=== PATIENT | male | born 1950 | race Caucasian/White ===

== ENCOUNTER 2023-07-05 14:42 | Emergency (ER) | payer BC, MEDICARE, OTHER ==
[~2023-07-05] VITALS: Ht 175 cm; Wt 92.0 kg
[~2023-07-05 14:42] MED LIST: AMOX250S5 PO; BNZ10T PO; HYDR118S PO; ONDAN4ODT PO
[2023-07-05 14:48] VITALS: BP 181/105
[2023-07-05] MEDS ORDERED: fentaNYL INJECTION 100 MCG/2 ML VIAL IVP STA (14:48)
--- NOTE | 2023-07-05 14:55 | ED Upper Extremity ---
General Chief Complaint: Upper Extremity Stated Complaint: RT SHOULDER/ARM INJ Source: patient History of Present Illness Date Seen by Provider: Jul 05, 2023 Time Seen by Provider: 14:44 Initial Comments 72-year-old male presenting with complaints of pain to his right shoulder and upper arm. He states he was hit by a cattle gate when a calf had run into it. He has pain to the shoulder and feels tingling in his pinky and ring finger. He has increased pain whenever he tries to move his right shoulder or arm. He denies hitting his head or losing consciousness. He denies other injuries. He reports he has no allergies to medications. He last ate around 7 AM. He is rating his pain at an 8 or 9 out of 10. Onset: just prior to arrival Severity: severe Pain/Injury Location: right shoulder Method of Injury: direct blow Modifying Factors: Worse With Movement Allergies and Home Medications Allergies Coded Allergies: No Known Drug Allergies (Unverified , 01/13/13) Patient Home Medication List Home Medication List Reviewed: Yes Amoxicillin (Amoxicillin) 250 Mg/5 Ml Susp.recon, 2 TSP PO QID, (Reported) Entered as Reported by: JARED RUIZ on 01/17/131807 Benazepril Hcl (Lotensin 10 Mg) 10 Mg Tablet, 1 EACH PO DAILY, (Reported) Entered as Reported by: KELL ROSENBAUM on 01/13/13 1319 Hydrocodone Bit/Acetaminophen (Hydrocodone-Apap 7.5-500 Mg/15) 120 Ml Solution, 10-15 ML PO Q4HR PRN, (Reported) Entered as Reported by: JARED RUIZ on 01/17/131807 Ondansetron Hcl (Zofran Oral Dissolve) 4 Mg Tab, 4 MG PO Q4-6HRS PRN, (Reported) Entered as Reported by: JARED RUIZ on 01/17/131807 Review of Systems Constitutional: No chills, No fever EENTM: no symptoms reported Respiratory: no symptoms reported Cardiovascular: no symptoms reported Gastrointestinal: no symptoms reported Genitourinary: no symptoms reported Musculoskeletal: see HPI Skin: no symptoms reported Psychiatric/Neurological: See HPI Past Ynrjgdp-Eymfhn-Oncjpw Hx Patient Social History Tobacco Use?: No Use of E-Cig and/or Vaping dev: No Substance use?: No Alcohol Use?: No Past Medical History Surgery/Hospitalization HX: Hypertension Reproductive Disorders: No Physical Exam Vital Signs Vital Signs - First Documented 07/05/23 14:48 Temp 36.7 Pulse 65 Resp 18 B/P (MAP) 181/105 (130) Pulse Ox 93 O2 Delivery Room Air Capillary Refill : Height, Weight, BMI Height: '" Weight: lbs. oz. kg; BMI Method: General Appearance: WD/WN, mild distress HEENT: PERRL/EOMI Cardiovascular: normal peripheral pulses, regular rate, rhythm Respiratory: chest non-tender, lungs clear, normal breath sounds Shoulder: deformity, limited ROM, pain Neurologic/Tendon: other (He is able to extend his thumb on the right hand and make an okay sign as well as bring his thumb to his pinky finger.) Neurologic/Psychiatric: alert, oriented x 3 Skin: normal color, warm/dry Procedures/Interventions Splinting and Joint Reduction : Location: Right anterior shoulder dislocation Pre-Proc Neuro Vasc Exam: normal Post-Proc Neuro Vasc Exam: normal Progress After obtaining consent from the patient and his patient was placed in upright position on the bed. Using the Nicola procedure with external rotation of the right arm and holding it externally rotated for at least 1 minute to allow the muscles to fatigue and stop spasming then abducted and rotated the elbow medially and then brought his right hand to left shoulder. he had closed reduction of the right shoulder dislocation without difficulty. He immediately had improved pain and the tingling in his right pinky and ring finger resolved. He remained neurovascularly intact pre and post closed reduction. Post reduction xray obtained to confirm reduction and verify no fracture. placed in sling to help stabilize shoulder. Advised to limit use of right arm until he can see orthopedics. wear sling at all times other than to change clothes and limit movement of right shoulder when he does change clothes or bathe. Advised to call orthopedics to arrange follow-up within the next week or so. Be seen sooner if having recurrent dislocation or more problems. Overall patient tolerated closed reduction procedure well without any immediate complication and had immediate improvement in terms of pain and sensation Joint Reduction Site: shoulder (R) Reduction Attempts: 1 Pre-Procedure NV Exam: Yes post joint reduction film: joint reduced Progress/Results/Core Measures Results/Orders My Orders Orders - TRINIDAD FOWLER MD Ed Iv/Invasive Line Start (07/05/23 14:48) Shoulder 3 View Right (07/05/23 14:48) Fentanyl Injection (Fentanyl Injection (07/05/23 14:48) Fentanyl Injection (Fentanyl Injection (07/05/23 15:20) Midazolam Injection (Midazolam Injection (07/05/23 15:20) Shoulder 1 View Right (07/05/23 15:29) Vital Signs/I&O 07/05/23 14:48 Temp 36.7 Pulse 65 Resp 18 B/P (MAP) 181/105 (130) Pulse Ox 93 O2 Delivery Room Air Progress Progress Note #1: Progress Note Differential diagnosis includes humerus fracture, shoulder dislocation, clavicle fracture, AC joint separation. Establish peripheral IV access and administer fentanyl 50 mcg IV x1 to help with pain. X-rays of the right shoulder to look for acute bony abnormality. Ice and elevation to help with pain Progress Note #2: Progress Note Patient had improved pain after the dose of fentanyl. He was consented for closed reduction of the dislocated shoulder. He tolerated the Nicola procedure with 1 attempt to reduce shoulder without difficulty. Placed in a sling and confirmed with postreduction x-ray. Counseled on follow-up and return precautions. Advised he could use acetaminophen and/or ibuprofen if needed for pain. Try to use ice to help with pain and inflammation. Try to keep the shoulder elevated is much as possible for the next few days. Given phone number for Dr. Berger as the on-call orthopedic doctor as well as he had previously been seen by Joey Key nurse practitioner so phone number for him was also provided. Diagnostic Imaging Diagonstic Imaging: Xray Plain Films/CT/US/NM/MRI: other (Right shoulder) Comments [facility], [place] NAME: [facility] REC#: [id number] PT STATUS: REG ER : 1950 PHYSICIAN: TRINIDAD FOWLER MD ADMIT DATE: 07/05/23/ER FS Signed Date of Exam:07/05/23 SHOULDER 3 VIEW RIGHT EXAMINATION: Right shoulder radiographs, 3 views. COMPARISON: None. HISTORY: 72-year-old male, right shoulder pain. FINDINGS: The humeral head is inferiorly and medially dislocated relative to the glenoid. There is no radiographically visible fracture. There are mild acromioclavicular degenerative changes without large undersurface osteophyte. IMPRESSION: 1. The humeral head is inferiorly and medially dislocated relative to the glenoid. 2. No radiographically apparent fracture. Dictated by: Dictated on workstation # [id number] Dict: 07/05/23 1508 Trans: 07/05/23 1518 [id number] Interpreted by: KARL MUSA MD Electronically signed by: KARL MUSA MD 07/05/23 1518 Reviewed: Reviewed by Me Diagonstic Imaging: Xray Plain Films/CT/US/NM/MRI: other (Postreduction right shoulder) Comments [facility] [place] NAME: [facility] REC#: [id number] PT STATUS: DEP ER : 1950 PHYSICIAN: TRINIDAD FOWLER MD ADMIT DATE: 07/05/23/ER FS Signed Date of Exam:07/05/23 SHOULDER 1 VIEW RIGHT SHOULDER 1 VIEW RIGHT INDICATION: Postreduction imaging COMPARISON: Earlier same day at 3:04 PM FINDINGS AND IMPRESSION: 1. The glenohumeral dislocation has been reduced. 2. No appreciable fracture. Specifically, no osseous Bankart, Hill-Sachs or glenoid fractures detected. Dictated by: Dictated on workstation # [id number] Dict: 07/05/23 1540 Trans: 07/05/23 1702 [facility] [id number] Interpreted by: KVNG JOSHI MD Electronically signed by: KVNG JOSHI MD 07/05/231701 Reviewed: Reviewed by Me Departure Impression Primary Impression: Dislocation of shoulder, right, closed Qualified Codes: S43.004A - Unspecified dislocation of right shoulder joint, initial encounter Additional Impression: Acute pain of right shoulder due to trauma Disposition: 01 HOME, SELF-CARE Condition: Improved Departure-Patient Inst. Decision time for Depature: 15:45 Referrals: KATE SUMNER MD (PCP) Primary Care Physician YANA KEY JUSTIN S MD Patient Instructions: Shoulder Pain ED, Shoulder Dislocation (DC) Add. Discharge Instructions: Try to wear the sling at all times until you are seen by orthopedics. When you are not using the sling and resting your shoulder there is a chance that it could dislocate again especially in this first few days. Apply ice and try to keep the shoulder elevated to help with pain and swelling. You may apply ice for 15 to 20 minutes every few hours as needed while awake. You may also take acetaminophen and/or ibuprofen if needed for pain. Call today to arrange follow-up with orthopedics within the next week. If you have recurrent dislocation or have increasing pain or develop numbness in your hands and fingers then you would need to be seen again to evaluate for possible recurrent dislocation or you may need an MRI to look for injury to the rotator cuff or nerves in your shoulder. All discharge instructions reviewed with patient and/or family. Voiced understanding. TRINIDAD FOWLER MD Jul 05, 2023 14:55
--- NOTE | 2023-07-05 15:17 | Diagnostic Imaging Report ---
EXAMINATION: Right shoulder radiographs, 3 views. COMPARISON: None. HISTORY: 72-year-old male, right shoulder pain. FINDINGS: The humeral head is inferiorly and medially dislocated relative to the glenoid. There is no radiographically visible fracture. There are mild acromioclavicular degenerative changes without large undersurface osteophyte. IMPRESSION: 1. The humeral head is inferiorly and medially dislocated relative to the glenoid. 2. No radiographically apparent fracture. Dictated by: Dictated on workstation # [id number]
[2023-07-05] MEDS ORDERED: MIDAZOLAM INJ 5 MG/5 ML VIAL ONE (15:20)
[2023-07-05] MEDS ORDERED: fentaNYL INJECTION 100 MCG/2 ML VIAL ONE (15:20)
--- NOTE | 2023-07-05 15:43 | Diagnostic Imaging Report ---
SHOULDER 1 VIEW RIGHT INDICATION: Postreduction imaging COMPARISON: Earlier same day at 3:04 PM FINDINGS AND IMPRESSION: 1. The glenohumeral dislocation has been reduced. 2. No appreciable fracture. Specifically, no osseous Bankart, Hill-Sachs or glenoid fractures detected. Dictated by: Dictated on workstation # [id number]
== END 2023-07-05 16:00 | disposition home or self-care (01) ==
LOC: EDUNIT# 14:42 → ER FS 14:43
DX: S43.004A Unspecified dislocation of right shoulder joint, initial encounter (principal); W22.8XXA Striking against or struck by other objects, initial encounter
CPT/HCPCS: 73020; 73030; 96374